=== PATIENT | male | born 1990 | race Two or more races ===

== ENCOUNTER 2025-07-17 21:50 | Emergency (ER) | payer MEDICAID ==
[~2025-07-17] VITALS: Ht 177.8 cm; Wt 159.1 kg
[~2025-07-17 21:50] MED LIST: NOCURR
[2025-07-17 22:45] VITALS: BP 122/83; PULSE 89; RESP 16; TEMP 98.1; O2SAT 96
[2025-07-17 23:48] LABS: APPEARANCE,URINE CLEAR (CLEAR); GLUCOSE, URINE (UA) NEGATIVE (NEGATIVE); LEUKOCYTE ESTERASE ,URINE NEGATIVE (NEGATIVE); NITRATE,URINE NEGATIVE (NEGATIVE); OCCULT BLOOD,URINE NEGATIVE (NEGATIVE); SPECIFIC GRAVITIY, URINE 1.030 (1.003-1.030)
== END 2025-07-18 02:26 | disposition home or self-care (01) ==
LOC: EMS 21:50
DX: K40.90 Unilateral inguinal hernia, without obstruction or gangrene, not specified as recurrent (principal)
CPT/HCPCS: 81003; 99283